=== PATIENT | male | born 2000 | race Caucasian/White ===

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

== ENCOUNTER → 2024-02-17 | Outpatient (REF) | payer BC | LOC: M LAB REF 17:55 | PROVIDERS: ATTEND Nurse Practitioner Family | DX: R53.83 Other fatigue (principal) ==